=== PATIENT | male | born 1990 | race Hispanic/Latino ===

== ENCOUNTER 2016-08-13 15:03 | Emergency (ER) | payer BC ==
[2016-08-13] MEDS ORDERED: Acetaminophen 500 MG Tab PO ONE (15:29)
--- NOTE | 2016-08-13 15:37 | EDM.PDOC ---
ED HISTORY OF PRESENT ILLNESS - General Chief Complaint: Respiratory Problem Stated Complaint: FEVER Time Seen by Provider: 08/13/16 15:15 - History of Present Illness INITIAL COMMENTS - FREE TEXT/NARRATIVE: HISTORY AND PHYSICAL: History of present illness: The patient is a healthy 26 y/o male who presents with complaints of 3 days of cough fevers feelings chills and congestion. He has felt rundown and weak but is not having vomiting abdominal pain chest pain or diarrhea. Patient did not get her influenza shot this year. Patient states he has been drinking orange juice but is not treated with his water intake and has not been taking anything for fevers at home. Patient states that many people at work are sick and he is concerned Review of systems: As per history of present illness and below otherwise all systems reviewed and negative. Past medical history: As per history of present illness and as reviewed below otherwise noncontributory. Surgical history: As per history of present illness and as reviewed below otherwise noncontributory. Social history: No reported history of drug or alcohol abuse. Family history: As per history of present illness and as reviewed below otherwise noncontributory. Physical exam: General: Well-developed well-nourished male who is nontoxic and speaking with slight nasal quality to voice. His vitals have been noted for me for triage HEENT: Atraumatic, normocephalic, pupils reactive, negative for conjunctival pallor or scleral icterus, mucous membranes moist, throat clear with only slight redness of the posterior oropharynx but no exudates or swelling, there is no cervical adenopathy,, neck supple, nontender, trachea midline. Lungs: Clear to auscultation, breath sounds equal bilaterally, chest nontender. No work or breathing Heart: S1S2, regular, negative for clicks, rubs, or JVD. Abdomen: Soft, nondistended, nontender. NABS Genitourinary: Deferred. Rectal: Deferred. Extremities: Atraumatic, negative for cords or calf pain. Neurovascular unremarkable. Neuro: Awake, alert, oriented. Cranial nerves II through XII unremarkable. Cerebellum unremarkable. Motor and sensory unremarkable throughout. Exam nonfocal. Diagnostics: Influenza swab rapid strep Therapeutics: By mouth fluids Tylenol Impression: Influenza B. Definitive disposition and diagnosis as appropriate pending reevaluation and review of above. - Related Data Allergies/ADRs: Allergies Allergy/AdvReac Type Severity Reaction Status Date / Time No Known Allergies Allergy Verified 08/13/16 15:15 Home Meds: Home Meds . [No Known Home Meds] 08/13/16 [History] Past Medical History - Past Health History Medical/Surgical History: Denies Medical/Surgical History Social & Family History - Family History Family Medical History: Noncontributory - Tobacco Use Smoking Status *Q: Never Smoker - Caffeine Use Caffeine Use: Reports: None - Recreational Drug Use Recreational Drug Use: No ED ROS GENERAL - Review of Systems Review Of Systems: ROS reveals no pertinent complaints other than HPI. ED EXAM, GENERAL - Physical Exam Exam: See Below (See dictation) Course - Vital Signs Last Recorded V/S: Last Vital Signs Temp 38.9 C H 08/13/16 15:39 Pulse 116 H 08/13/16 15:14 Resp 18 08/13/16 15:14 BP 130/78 08/13/16 15:14 Pulse Ox 92 L 08/13/16 15:14 - Orders/Labs/Meds Orders: Active Orders 24 hr Category Date Time Status CULTURE STREP A CONFIRMATION [RM] Stat Lab 08/13/16 15:37 Results STREP SCRN A RAPID W CULT CONF [RM] Stat Lab 08/13/16 15:37 Results Meds: Medications Discontinued Medications Generic Name Dose Route Start Last Admin Trade Name Gladis PRN Reason Stop Dose Admin Acetaminophen 1,000 mg 08/13/16 15:29 08/13/16 15:39 Tylenol Extra Strength PO 08/13/16 15:30 1,000 mg ONETIME ONE Administration Departure - Departure Time of Disposition: 16:07 Disposition: Home, Self-Care 01 Condition: good Clinical Impression: Influenza B Forms: ED Department Discharge Additional Instructions: The following information is given to patients seen in the emergency department who are being discharged to home. This information is to outline your options for follow-up care. We provide all patients seen in our emergency department with a follow-up referral. The need for follow-up, as well as the timing and circumstances, are variable depending upon the specifics of your emergency department visit. If you don't have a primary care physician on staff, we will provide you with a referral. We always advise you to contact your personal physician following an emergency department visit to inform them of the circumstance of the visit and for follow-up with them and/or the need for any referrals to a consulting specialist. The emergency department will also refer you to a specialist when appropriate. This referral assures that you have the opportunity for followup care with a specialist. All of these measure are taken in an effort to provide you with optimal care, which includes your followup. Under all circumstances we always encourage you to contact your private physician who remains a resource for coordinating your care. When calling for followup care, please make the office aware that this follow-up is from your recent emergency room visit. If for any reason you are refused follow-up, please contact the [facility] emergency department at and ask to speak to the emergency department charge nurse. [facility] Primary care- Internal Medicine and Family [address] [address] Push hydration and use [id number] Tylenol/ibuprofen for fever and body aches. Take Tamiflu as directed as it will help shorten the duration of her symptoms but please remember it is not a cure. Please follow up with clinic physician for further care and evaluation and return here as needed and as discussed - My Orders Last 24 Hours: My Active Orders 08/13/16 15:37 CULTURE STREP A CONFIRMATION [RM] Stat STREP SCRN A RAPID W CULT CONF [] Stat - Assessment/Plan Last 24 Hours: My Active Orders 08/13/16 15:37 CULTURE STREP A CONFIRMATION [RM] Stat STREP SCRN A RAPID W CULT CONF [] Stat
[2016-08-13 16:10] VITALS: BP 126/68
[2016-08-13] MEDS ORDERED: Ibuprofen 800 MG Tab PO ONE (16:10)
== END 2016-08-13 16:22 | disposition home or self-care (01) ==
LOC: MW.ED 15:03
DX: J10.89 Influenza due to other identified influenza virus with other manifestations (principal)
CPT/HCPCS: 87081; 87804; 87880; 99283; A9270

== ENCOUNTER 2017-12-01 21:46 | Emergency (ER) | payer BC ==
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
[2017-12-02 00:05] VITALS: BP 121/81
--- NOTE | 2017-12-02 08:46 | CR ---
EXAM DATE: 12/01/17 PATIENT'S AGE: 27 Patient: PEACE MURRAY Facility: [place], [place] Site . Site : 1990 Study: XRay Extremity Left [id number] 10:21:58 PM Ordering Physician: Prashant Neri Final Report: INDICATION: pain, punched a wall TECHNIQUE: Two views of the left hand COMPARISON: None FINDINGS/IMPRESSION: Bones: Comminuted mildly impacted fracture of the 5th metacarpal neck with volar angulation of the distal fracture fragment. No bone lesions. Joint spaces: Unremarkable. Dictated by Swapnil Bocanegra MD @ 12/01/2017 10:31:42 PM Dictated by: Swapnil Bocanegra MD @ 12/01/2017 22:31:52 (Electronic Signature) Report Signed by Proxy. [facility] CENTEREnmanuel
== END 2017-12-01 23:35 | disposition home or self-care (01) ==
LOC: MW.ED 21:46
DX: S62.337A Displaced fracture of neck of fifth metacarpal bone, left hand, initial encounter for closed fracture (principal); W22.01XA Walked into wall, initial encounter
CPT/HCPCS: 73120-26-LT; 73120-LT; 99283